=== PATIENT | female | born 1995 | race African-American/Black ===

== ENCOUNTER → 2020-11-26 | Outpatient (CLI) | payer OTHER ==
[~2020-11-26] MED LIST: ZOFRAN ODT4 MG PO
== END ==
LOC: COL.RAD 11-04 12:45
DX: Z94.4 Liver transplant status (principal); Z90.49 Acquired absence of other specified parts of digestive tract

== ENCOUNTER 2021-01-11 11:27 | Emergency (ER) | payer OTHER ==
[~2021-01-11] VITALS: Ht 162.6 cm; Wt 59.1 kg
[2021-01-11 11:55] VITALS: TEMP 98.4
[2021-01-11 13:31] LABS: COLLECTION METHOD CLEAN CATCH
[2021-01-11 13:45] LABS: BASO % 0.3 % (0.0-2.0); EOS % 0.1 % (0-4.0); GRAN # 10.9 (1.4-6.5); GRAN % 76.4 % (42.2-75.2); HEMATOCRIT 43.9 % (37.0-47.0); HEMOGLOBIN 14.7 g/dl (12.5-16.0); LYMPH % 13.8 % (20.0-51.0); MEAN CELL VOLUME 83 fl (80.0-100.0); MEAN CORPUSCULAR HEMOGLOBIN 28 pg (27.0-31.0); MEAN CORPUSCULAR HGB CONC 34 g/dl (33.0-37.0); MEAN PLATELET VOLUME 12.9 fl (7.4-10.4); MONO # 1.3 (0.1-0.6); MONO % 8.8 % (1.7-9.3); PLATELET COUNT 205 K/mm3 (130-400); RED BLOOD COUNT 5.29 M/mm3 (4.10-5.30)
[2021-01-11 13:46] LABS: ALBUMIN 5.1 gm/dL (3.5-5.0); BILIRUBIN,TOTAL 1.3 mg/dL (0.0-1.0); C-REACTIVE PROTEIN 0.6 mg/dL (0.0-0.9); CALCIUM 10.7 mg/dL (8.4-10.2); CREATININE, serum 0.69 (0.52-1.25); POTASSIUM 3.7 mmol/L (3.4-5.0); TOTAL PROTEIN 9.5 gm/dL (6.4-8.2)
[2021-01-11 14:00] LABS: MUCOUS Present /lpf; PH 6 (5-8); URINE APPEARANCE Turbid; URINE BACTERIA Rare /hpf; URINE BILIRUBIN Negative (NEGATIVE); URINE BLOOD 1+ (NEGATIVE); URINE COLOR Amber; URINE GLUCOSE Negative (NEGATIVE); URINE KETONE 2+ (NEGATIVE); URINE LEUKOCYTE ESTERASE Negative (NEGATIVE); URINE NITRATE Negative (NEGATIVE); URINE PROTEIN(semi-quant) 2+ (NEGATIVE); URINE RBC 0-2 /hpf
[2021-01-11] MEDS ORDERED: ZOFRAN ODT4 MG PO (16:04)
[2021-01-11 16:17] VITALS: BP 98/62; PULSE 56
== END 2021-01-11 16:17 | disposition home or self-care (01) ==
LOC: COL.ER 11:27
PROVIDERS: Nurse Practitioner
DX: R10.9 Unspecified abdominal pain (principal); R11.2 Nausea with vomiting, unspecified; R51.9 Headache, unspecified; F10.10 Alcohol abuse, uncomplicated; R94.5 Abnormal results of liver function studies; F17.210 Nicotine dependence, cigarettes, uncomplicated; Z20.822 Contact with and (suspected) exposure to COVID-19; Z32.02 Encounter for pregnancy test, result negative
CPT/HCPCS: J1200; J1885; J2550; J7030

== ENCOUNTER 2021-04-12 21:00 | Emergency (ER) | payer OTHER ==
[~2021-04-12] VITALS: Ht 162.6 cm; Wt 59.1 kg
[2021-04-12 21:07] VITALS: TEMP 98
[2021-04-12 21:50] VITALS: BP 114/70; PULSE 76
== END 2021-04-12 21:50 | disposition home or self-care (01) ==
LOC: COL.ER 21:00
DX: N75.1 Abscess of Bartholin's gland (principal)

== ENCOUNTER 2021-05-04 13:05 | Emergency (ER) | payer OTHER ==
[~2021-05-04] VITALS: Ht 160 cm; Wt 61.4 kg
[2021-05-04 13:16] VITALS: BP 135/98; TEMP 99.4
[2021-05-04 13:56] VITALS: PULSE 99
== END 2021-05-04 13:56 | disposition home or self-care (01) ==
LOC: COL.ER 13:05
DX: N75.0 Cyst of Bartholin's gland (principal)

== ENCOUNTER → 2021-08-02 | Outpatient (CLI) | payer BC ==
[2021-08-02 17:33] LABS: BASO % 0.4 % (0.0-2.0); EOS # 0.1 K/mm3 (0.0-0.7); GRAN # 3.9 K/mm3 (1.4-6.5); GRAN % 59.2 % (42.2-75.2); HEMOGLOBIN 12.2 g/dl (12.5-16.0); LYMPH # 1.8 K/mm3 (1.2-3.4); LYMPH % 26.7 % (20.0-51.0); MEAN CELL VOLUME 89 fl (80.0-100.0); MEAN CORPUSCULAR HEMOGLOBIN 30 pg (27-31); MEAN CORPUSCULAR HGB CONC 33 g/dl (33.0-37.0); MEAN PLATELET VOLUME 11.3 fl (7.4-10.4); MONO # 0.8 K/mm3 (0.1-0.6); MONO % 12.3 % (1.7-9.3); PLATELET COUNT 110 K/mm3 (130-400); RED BLOOD COUNT 4.14 M/mm3 (4.10-5.30); REDCELL DISTRIBUTION WIDTH-CV 14.9 % (11.5-14.5)
[2021-08-02 17:36] LABS: PROTHROMBIN TIME 11.5 SECONDS (9.7-12.8)
[2021-08-02 17:56] LABS: ALBUMIN 3.8 gm/dL (3.5-5.0); BILIRUBIN,TOTAL 0.3 mg/dL (0.2-1.2); CALCIUM 8.8 mg/dL (8.4-10.2); CREATININE, serum 0.7 mg/dL (0.57-1.11); POTASSIUM 3.4 mmol/L (3.5-4.5); TOTAL PROTEIN 8.1 gm/dL (6.2-8.1)
[2021-08-02 22:34] LABS: GAMMA GLUTAMYL TRANSPEPTIDASE 680 U/L (3-36)
== END ==
LOC: COL.LAB 16:49
PROVIDERS: Internal Medicine
DX: K74.69 Other cirrhosis of liver (principal); Z94.4 Liver transplant status

== ENCOUNTER → 2021-09-29 | Outpatient (CLI) | payer OTHER ==
[2021-09-29 04:13] LABS: BASO % 0.3 % (0.0-2.0); EOS # 0.2 K/mm3 (0.0-0.7); GRAN % 63.5 % (42.2-75.2); HEMATOCRIT 37.9 % (37.0-47.0); HEMOGLOBIN 12.4 g/dl (12.5-16.0); LYMPH # 2.4 K/mm3 (1.2-3.4); LYMPH % 25.6 % (20.0-51.0); MEAN CELL VOLUME 86 fl (80.0-100.0); MEAN CORPUSCULAR HEMOGLOBIN 28 pg (27-31); MEAN CORPUSCULAR HGB CONC 33 g/dl (33.0-37.0); MEAN PLATELET VOLUME 11.8 fl (7.4-10.4); MONO # 0.8 K/mm3 (0.1-0.6); MONO % 8.4 % (1.7-9.3); PLATELET COUNT 203 K/mm3 (130-400); RED BLOOD COUNT 4.41 M/mm3 (4.10-5.30); REDCELL DISTRIBUTION WIDTH-CV 12.4 % (11.5-14.5)
[2021-09-29 04:17] LABS: PROTHROMBIN TIME 11.6 SECONDS (9.7-12.8)
[2021-09-29 04:54] LABS: ALBUMIN 4.2 gm/dL (3.5-5.0); BILIRUBIN,TOTAL 0.2 mg/dL (0.2-1.2); CALCIUM 9.3 mg/dL (8.4-10.2); CREATININE, serum 0.79 mg/dL (0.57-1.11); TOTAL PROTEIN 8.3 gm/dL (6.2-8.1)
[2021-09-29 17:22] LABS: GAMMA GLUTAMYL TRANSPEPTIDASE 20 U/L (3-36)
== END ==
LOC: COL.LAB 03:50
PROVIDERS: Internal Medicine
DX: K74.69 Other cirrhosis of liver (principal); R94.4 Abnormal results of kidney function studies

== ENCOUNTER → 2022-05-06 | Outpatient (CLI) | payer OTHER ==
[2022-05-06 06:15] LABS: BASO % 0.3 % (0.0-2.0); EOS # 0.2 K/mm3 (0.0-0.7); EOS % 3.4 % (0.0-4.0); GRAN # 2.7 K/mm3 (1.4-6.5); GRAN % 41.7 % (42.2-75.2); HEMATOCRIT 37.5 % (37.0-47.0); HEMOGLOBIN 12.4 g/dl (12.5-16.0); LYMPH # 2.8 K/mm3 (1.2-3.4); LYMPH % 44.4 % (20.0-51.0); MEAN CELL VOLUME 84 fl (80.0-100.0); MEAN CORPUSCULAR HEMOGLOBIN 28 pg (27-31); MEAN CORPUSCULAR HGB CONC 33 g/dl (33.0-37.0); MONO # 0.6 K/mm3 (0.1-0.6); PLATELET COUNT 91 K/mm3 (130-400); RED BLOOD COUNT 4.49 M/mm3 (4.10-5.30); REDCELL DISTRIBUTION WIDTH-CV 14.7 % (11.5-14.5)
[2022-05-06 06:28] LABS: ALBUMIN 3.5 gm/dL (3.5-5.0); BILIRUBIN,TOTAL 0.6 mg/dL (0.2-1.2); CALCIUM 9.1 mg/dL (8.4-10.2); CREATININE, serum 0.71 mg/dL (0.57-1.11); POTASSIUM 3.8 mmol/L (3.5-4.5); TOTAL PROTEIN 7.2 gm/dL (6.2-8.1)
== END ==
LOC: COL.LAB 04:00
PROVIDERS: Internal Medicine
DX: K74.69 Other cirrhosis of liver (principal); Z94.4 Liver transplant status